=== PATIENT | male | born 1945 | race Caucasian/White ===

== ENCOUNTER 2022-10-10 11:11 | Inpatient (IN) | payer OTHER ==
[~2022-10-10] VITALS: Ht 182.9 cm; Wt 88.0 kg
[2022-10-10 11:11] VITALS: BP_SYST 133
--- NOTE | 2022-10-10 11:11 | NUR ---
BROUGHT BACK TO BED #3 AND TRIAGED. REPORT GIVEN TO MAGNOLIA
--- NOTE | 2022-10-10 11:15 | NUR ---
Tino mercer in [facility] - 10/10/22 at 1117 by [email or web address] Patient to [place] [id number] to hector for evaluation. Side rails up.
--- NOTE | 2022-10-10 11:15 | NUR ---
Patient to ER bed 03 to gown for evaluation. Side rails up.
--- NOTE | 2022-10-10 11:28 | NUR ---
assumed patient care pt aox4 gcs 15 c/o dizziness x 1 day, patient called his primary this am to notify oabout s/s and was notified to f/u in the urgent care. pt was at urgent care and was informed to fo to ER due to heart murmur heard at urgent car. patient states he feels light headed and dizzy when he makes sudden movements. Patient roomed in #3 placed on tele monitor.
--- NOTE | 2022-10-10 11:33 | NUR ---
Dr Lynch evaluating patient at bedside
[2022-10-10] MEDS ORDERED: ASPIRIN 81 MG TAB.CHEW PO ONE (11:45)
[2022-10-10 12:10] LABS: BASOPHILS % (AUTO) 0.6 % (0.0-2.0); EOSINOPHILS # (AUTO) 0.1 K/uL (0.0-0.4); EOSINOPHILS % (AUTO) 1.8 % (0.0-4.0); HEMATOCRIT 41.3 % (36-54); HEMOGLOBIN 13.4 g/dL (14.0-18.0); LYMPHOCYTES % (AUTO) 29.6 % (20.5-51.5); MEAN CORPUSCULAR HEMOGLOBIN 31 pg (27-31); MEAN CORPUSCULAR HGB CONC 32 % (32-36); MEAN CORPUSCULAR VOLUME 97 fL (79.0-98.0); MONOCYTES # (AUTO) 0.3 K/uL (0.0-1.0); MONOCYTES % (AUTO) 9.6 % (1.7-9.3); NEUTROPHILS # (AUTO) 2.1 K/uL (1.8-7.7); NEUTROPHILS % (AUTO) 58.4 % (40.0-70.0); PLATELET COUNT (AUTO) 94 K/uL (130-430); RED BLOOD CELL COUNT(AUTO) 4.25 MIL/uL (4.2-6.2); RED CELL DISTRIBUTION WIDTH 15.3 % (9.0-15.0); WHITE BLOOD COUNT (AUTO) 3.5 K/uL (4.8-10.8)
[2022-10-10 13:05] LABS: ANION GAP 9 (5-15); CALCIUM 9.7 mg/dL (8.4-11.0); CHLORIDE 105 mmol/L (98-107); CREATININE 0.82 mg/dL (0.55-1.30); GLUCOSE 96 mg/dL (70-99); UREA NITROGEN, BLOOD 22 mg/dL (8-21)
[2022-10-10 13:12] LABS: ASPARTATE AMINOTRANSFERASE 17 U/L (10-37)
[2022-10-10 13:19] LABS: INR 1.7 (0.80-1.20); PROTHROMBIN TIME 17.2 SECS (9.5-12.5)
[2022-10-10 13:28] LABS: ALANINE AMINOTRANSFERASE 12 U/L (12-78)
--- NOTE | 2022-10-10 14:23 | NUR ---
14:23 PT WAS HOOKED UP TO PACER PADS PER MD ORDERS
[2022-10-10] MEDS ORDERED: FLUT16SP16 NS (14:28)
[2022-10-10] MEDS ORDERED: SIMV-345 PO (14:28)
[2022-10-10] MEDS ORDERED: MONT-40 PO (14:28)
[2022-10-10] MEDS ORDERED: HYT1 PO (14:28)
[2022-10-10] MEDS ORDERED: WARF4TAB72 PO (14:28)
[2022-10-10] MEDS ORDERED: THEO300T45 PO (14:28)
[2022-10-10] MEDS ORDERED: KETO60CR2 TP (14:28)
[2022-10-10] MEDS ORDERED: FENO160 PO (14:28)
[2022-10-10] MEDS ORDERED: FLUT1BLS5 IH (14:28)
[2022-10-10] MEDS ORDERED: FURO-150 PO (14:28)
[2022-10-10] MEDS ORDERED: HYDC2.5% TP (14:28)
[2022-10-10] MEDS ORDERED: ONDANSETRON HCL 4 MG/2 ML VIAL IVP PRN (14:30)
[2022-10-10] MEDS ORDERED: ACETAMINOPHEN 325 MG TABLET PO PRN ×2 (14:30)
--- NOTE | 2022-10-10 14:44 | NUR ---
pt had episode of dizziness, heart rated dropped down into low 40's on palpation 40bpm. MD made aware pt was moved to bed 1 and pacer pads placed, currently pt is receiving an echo examination.
--- NOTE | 2022-10-10 15:21 | NUR ---
Admit bed requested Patient will be admitted to care of . Admitted to TELE unit. Diagnosis BRADYCARDIA Inpatient (Yes or No) Y Observation (Yes or No) N Orientation concerns or request close to nursing station (Yes or No) Y Covid Status NEGATIVE On vent or bipap N Isolation requirements N Needs a sitter N From Home (Yes or if No enter name of facility) YES Requires Dialysis (Yes or No) N Med Rec Completed (Yes of No) Y
--- NOTE | 2022-10-10 16:50 | NUR ---
Transfer to TELEMETRY via ACLS protocol. Licensed nurse present. IV present no signs or symptoms of infiltration.
[2022-10-10 17:49] VITALS: BP_SYST 141
[2022-10-10 18:00] VITALS: BP_SYST 141
[2022-10-10] MEDS ORDERED: WARFARIN SODIUM 4 MG TABLET PO ONE (19:45)
[2022-10-10 19:50] VITALS: BP_SYST 128
--- NOTE | 2022-10-10 19:50 | NUR ---
Opening notes Pt alert, awake, watching TV. VSS. Pt denies dizziness or sob. IV L.FA 20G saline lock clear and patent. Instructed pt to call nurse for assistance out of bed, pt verbalized understanding. Call light/items within reach. To monitor.
[2022-10-10] MEDS: TERAZOSIN HCL 1 MG CAPSULE (HYTRIN) PO SCH (20:26)
[2022-10-10] MEDS: SIMVASTATIN 40 MG TABLET PO SCH (20:26)
[2022-10-11] VITALS (7 sets, daily range): BP systolic 119–131
--- NOTE | 2022-10-11 00:40 | NUR ---
Rounds Pt asleep, no s/s distress noted. Bed low, locked, siderails up x2, alarm on. Pt near nursing station to be monitored closely. Call light within reach.
--- NOTE | 2022-10-11 05:26 | NUR ---
Closing notes Pt asleep, no s/s distress noted. IV saline locked L. FA 20G clear and patent. Call light within reach. Bed low, locked, siderails up x2, alarm on. To endorse to AM nurse.
[2022-10-11 08:23] LABS: BASOPHILS % (AUTO) 0.4 % (0.0-2.0); EOSINOPHILS # (AUTO) 0.1 K/uL (0.0-0.4); EOSINOPHILS % (AUTO) 1.8 % (0.0-4.0); HEMATOCRIT 39.9 % (36-54); HEMOGLOBIN 13.6 g/dL (14.0-18.0); LYMPHOCYTES # (AUTO) 1.3 K/uL (1.0-5.5); LYMPHOCYTES % (AUTO) 25.4 % (20.5-51.5); MEAN CORPUSCULAR HEMOGLOBIN 32 pg (27-31); MEAN CORPUSCULAR HGB CONC 34 % (32-36); MEAN CORPUSCULAR VOLUME 95 fL (79.0-98.0); MONOCYTES # (AUTO) 0.5 K/uL (0.0-1.0); NEUTROPHILS % (AUTO) 61.4 % (40.0-70.0); PLATELET COUNT (AUTO) 92 K/uL (130-430); RED BLOOD CELL COUNT(AUTO) 4.22 MIL/uL (4.2-6.2); WHITE BLOOD COUNT (AUTO) 4.9 K/uL (4.8-10.8)
[2022-10-11 08:28] LABS: ALANINE AMINOTRANSFERASE 16 U/L (12-78); ALBUMIN 3.8 g/dL (3.4-4.8); ANION GAP 10 (5-15); ASPARTATE AMINOTRANSFERASE 17 U/L (10-37); CALCIUM 9.3 mg/dL (8.4-11.0); CHLORIDE 105 mmol/L (98-107); CREATININE 0.75 mg/dL (0.55-1.30); GLUCOSE 96 mg/dL (70-99); TOTAL BILIRUBIN 1.2 mg/dL (0.0-1.0); UREA NITROGEN, BLOOD 19 mg/dL (8-21)
[2022-10-11] MEDS: FENOFIBRATE 160 MG TABLET PO SCH (08:38)
[2022-10-11] MEDS ORDERED: THEOPHYLLINE ANHYDROUS 300 MG TAB.SR.12H PO SCH (09:00)
[2022-10-11] MEDS: THEOPHYLLINE ANHYDROUS 300 MG TAB.SR.12H PO SCH ×2 (09:00→20:40)
[2022-10-11 09:33] LABS: INR 1.7 (0.80-1.20); PROTHROMBIN TIME 17.2 SECS (9.5-12.5)
--- NOTE | 2022-10-11 12:30 | NUR ---
Went to patient room to perform discharge planning assessment. Pt is forgetful to fine details about his MDs , health management and medications. Pt states that his "handles all that" This CM spoke with Angela [phone] regarding diagnosis with chief complaint. states that this has happened before. CM questioned if she knew what medications that the patient is taking and side effects. states, " Oh, he has a list of all his meds and knows what he is taking. This CM questioned about home DME; patient is on service with [facility] for home O2 needs. Patient used his 's cane yesterday when he felt "lightheaded". questioned about pt warfarin use, rationale and if he checks his levels as directed. confirms that she takes him to the "coumadin clinic" at the "[facility]". reports pt has history of "blood clots in his lungs". asked about DME BP machine and equipment that checks his heart rate. confirms that she uses a finger O2 sensor that will tell her his oxygen levels and heart rate. and patient need education on HR and BP norms and ranges for medication safety and possible DME BP machine. will follow up with patient RN
[2022-10-11] MEDS: MECLIZINE HCL 25 MG TABLET (ANITVERT) PO SCH ×2 (15:17→20:40)
[2022-10-11] MEDS ORDERED: WARFARIN SODIUM 4 MG TABLET PO SCH (18:00)
[2022-10-11] MEDS ORDERED: MONTELUKAST 10 MG TABLET PO SCH (18:00)
--- NOTE | 2022-10-11 19:50 | NUR ---
Opening notes Pt alert, awake, no s/s distress or discomfort noted. HR 50's. Call light within reach. Bed low, locked, siderails up x2. To monitor
[2022-10-11] MEDS: BUDESONIDE 0.5 MG/2 ML AMPUL.NEB INH SCH (20:07)
[2022-10-11] MEDS: SIMVASTATIN 40 MG TABLET PO SCH (20:40)
[2022-10-11] MEDS: TERAZOSIN HCL 1 MG CAPSULE (HYTRIN) PO SCH (20:40)
[2022-10-12] VITALS: BP_SYST 128
--- NOTE | 2022-10-12 06:35 | NUR ---
Closing notes Pt awake, sitting on edge of bed, no s/s distress noted, no c/o dizziness. IV saline locked L. FA 20G clear and patent. Call light within reach. Bed low, locked, siderails up x2, alarm on. To endorse to AM nurse.
[2022-10-12] MEDS: BUDESONIDE 0.5 MG/2 ML AMPUL.NEB INH SCH (07:30)
[2022-10-12 08:00] VITALS: BP_SYST 117
[2022-10-12] MEDS: MECLIZINE HCL 25 MG TABLET (ANITVERT) PO SCH ×2 (09:41→14:58)
[2022-10-12] MEDS: FENOFIBRATE 160 MG TABLET PO SCH (09:42)
[2022-10-12] MEDS: THEOPHYLLINE ANHYDROUS 300 MG TAB.SR.12H PO SCH (09:42)
--- NOTE | 2022-10-12 09:46 | NUR ---
medication Patients scheduled medication given per order. at bedside. no orders were received. Patient has spouse at bed side. educated patient and spouse conservation coordinator light. no other needs at this time.
[2022-10-12 10:33] LABS: BASOPHILS % (AUTO) 0.4 % (0.0-2.0); EOSINOPHILS # (AUTO) 0.1 K/uL (0.0-0.4); EOSINOPHILS % (AUTO) 1.7 % (0.0-4.0); HEMATOCRIT 41.2 % (36-54); HEMOGLOBIN 13.7 g/dL (14.0-18.0); LYMPHOCYTES # (AUTO) 1.2 K/uL (1.0-5.5); LYMPHOCYTES % (AUTO) 27.3 % (20.5-51.5); MEAN CORPUSCULAR HEMOGLOBIN 32 pg (27-31); MEAN CORPUSCULAR HGB CONC 33 % (32-36); MEAN CORPUSCULAR VOLUME 96 fL (79.0-98.0); MONOCYTES # (AUTO) 0.5 K/uL (0.0-1.0); MONOCYTES % (AUTO) 12.3 % (1.7-9.3); NEUTROPHILS # (AUTO) 2.6 K/uL (1.8-7.7); NEUTROPHILS % (AUTO) 58.3 % (40.0-70.0); PLATELET COUNT (AUTO) 107 K/uL (130-430); RED BLOOD CELL COUNT(AUTO) 4.29 MIL/uL (4.2-6.2); RED CELL DISTRIBUTION WIDTH 15.1 % (9.0-15.0); WHITE BLOOD COUNT (AUTO) 4.5 K/uL (4.8-10.8)
[2022-10-12 10:53] LABS: ANION GAP 6 (5-15); CALCIUM 9.6 mg/dL (8.4-11.0); CHLORIDE 104 mmol/L (98-107); CREATININE 0.84 mg/dL (0.55-1.30); GLUCOSE 78 mg/dL (70-99); UREA NITROGEN, BLOOD 20 mg/dL (8-21)
[2022-10-12 10:59] LABS: INR 1.8 (0.80-1.20); PROTHROMBIN TIME 17.9 SECS (9.5-12.5)
[2022-10-12 11:27] VITALS: BP_SYST 131
--- NOTE | 2022-10-12 12:13 | NUR ---
Dr.Samant thaddeus pendleton ok DIscharge from his standpoint. Paging Dr. Bhandari for orders. patient and spouse are at bedside awaiting discharge.
--- NOTE | 2022-10-12 12:42 | NUR ---
spoke with Dr. Bhandari states he will put in orders after lunch family and patient made aware
--- NOTE | 2022-10-12 15:00 | NUR ---
Medication Patient is awake and alert sitting in bed. Patient is awaiting order orders. still no orders were placed. Patient and spouse are aware. call light is with him educated to use for assistance.
[2022-10-12] MEDS ORDERED: MECL-160 PO (15:02)
[2022-10-12] MEDS ORDERED: THEO300T45 PO (15:02)
[2022-10-12 15:21] VITALS: BP_SYST 120
[2022-10-12 16:40] VITALS: BP_SYST 120
--- NOTE | 2022-10-12 17:11 | NUR ---
discharge patient discharged per order. patient is awake and alert educated on discharge paperwork.spouse and patient have no further questions.Patients iv catheter removed, catheter intact applied gauze and tape to insertion site. patients ID band removed. patient has all belongings with him. patient has no complaints at this time. patient wheeled out to car via wheel chair. patient states he has his ou Addendum: 10/12/22 at 1714 by Sandra Castrejon RN has his own process mold technician he will follow up with.
== END 2022-10-12 15:00 | disposition home or self-care (01) | DRG 309 ==
LOC: SED 11:11 → STU 14:19 → SMU 17:00 → STU 17:40
PROVIDERS: ADMIT Family Medicine; ATTEND Family Medicine
DX: R00.1 Bradycardia, unspecified (principal); J96.10 Chronic respiratory failure, unspecified whether with hypoxia or hypercapnia; R65.10 Systemic inflammatory response syndrome (SIRS) of non-infectious origin without acute organ dysfunction; H81.10 Benign paroxysmal vertigo, unspecified ear; I36.1 Nonrheumatic tricuspid (valve) insufficiency; I27.81 Cor pulmonale (chronic); Z20.822 Contact with and (suspected) exposure to COVID-19; I11.0 Hypertensive heart disease with heart failure; I50.9 Heart failure, unspecified; J44.9 Chronic obstructive pulmonary disease, unspecified; Z88.5 Allergy status to narcotic agent; Z79.899 Other long term (current) drug therapy; Z99.81 Dependence on supplemental oxygen; Z79.01 Long term (current) use of anticoagulants; Z87.891 Personal history of nicotine dependence; Z86.711 Personal history of pulmonary embolism
CPT/HCPCS: 36415; 70450-TC; 71045; 76376; 80048; 80053; 80198; 83880; 84443; 84484; 85025; 85610-TC; 85730-TC; 87081; 93005; 93306; 94640; 94760; 99285; G0378; J7626; J8597